=== PATIENT | male | born 1970 | race Caucasian/White ===

== ENCOUNTER 2017-12-03 07:18 | Emergency (ER) | payer MEDICARE, MEDICAID ==
[~2017-12-03] VITALS: Ht 182.9 cm; Wt 118.0 kg
[~2017-12-03 07:18] MED LIST: AMLO10TA4 PO; ASPI-518 PO; BENA40TA3 PO; FLUO20CA33 PO; HYDR25TA PO; INSU100C11 SQ; INSU100C6 SQ; LIP40 PO; RANI150T12 PO
[2017-12-03 08:09] VITALS: BP 136/88
[2017-12-03] MEDS ORDERED: LIDOCAINE HCL/PF 1% 2ML VIAL INFIL ONE (08:15)
[2017-12-03 08:59] LABS: CHLORIDE 97 mEq/L (98-107)
[2017-12-03] MEDS: LIDOCAINE HCL 1% 20ML VIAL (Pyxis) INJ INJ SCH ×2 (08:59→09:44)
[2017-12-03 09:02] LABS: BASOPHILS % 0.5 % (0.0-2.0); EOSINOPHILS % 0.9 % (0.0-5.0); HEMATOCRIT. 35.3 % (42.0-52.0); HEMOGLOBIN. 12.3 g/dL (14.0-18.0); LYMPHOCYTES % 9.4 % (20.0-50.0); MEAN CORPUSCULAR HEMOGLOBIN 32.8 pg (28.0-32.0); MEAN CORPUSCULAR VOLUME 94.5 fL (80.0-94.0); MEAN PLATELET VOLUME 6.6 fl (7.4-10.4); MONOCYTES % 9.2 % (2.0-8.0); PLATELET 395 x1000/uL (130-400); RED BLOOD CELL COUNT 3.74 mill/uL (4.7-6.1); RED CELL DISTRIBUTION WIDTH 13.5 % (11.6-14.6)
[2017-12-03 09:05] LABS: CARBON DIOXIDE 24 mEq/L (21-32)
[2017-12-03] MEDS ORDERED: BACITRACIN ZINC 15GM TUBE TOP ONE (09:15)
[2017-12-03] MEDS ORDERED: BACITRACIN ZINC OINT UDPKT TOP ONE (09:30)
== END 2017-12-03 09:50 | disposition home or self-care (01) ==
LOC: ER 07:37
DX: L02.11 Cutaneous abscess of neck (principal); E87.1 Hypo-osmolality and hyponatremia; E11.9 Type 2 diabetes mellitus without complications; I10 Essential (primary) hypertension; E78.00 Pure hypercholesterolemia, unspecified; Z79.4 Long term (current) use of insulin; Z79.82 Long term (current) use of aspirin; Z98.890 Other specified postprocedural states; Z89.421 Acquired absence of other right toe(s)
CPT/HCPCS: 10060; 36415; 80053; 85025; 99284; J3490